=== PATIENT | female | born 1950 | race Caucasian/White ===

== ENCOUNTER → 2018-04-12 | Outpatient (CLI) | payer MEDICARE | END | disposition home or self-care (01) | LOC: CVU 07:43 | PROVIDERS: ATTEND Family Medicine | DX: M79.662 Pain in left lower leg (principal); E78.00 Pure hypercholesterolemia, unspecified; I25.2 Old myocardial infarction | CPT/HCPCS: 93922 ==

== ENCOUNTER → 2019-01-02 | Outpatient (CLI) | payer MEDICARE | END | disposition home or self-care (01) | LOC: CFH 12:14 | PROVIDERS: ATTEND Internal Medicine Cardiovascular Disease | DX: I25.10 Atherosclerotic heart disease of native coronary artery without angina pectoris (principal) | CPT/HCPCS: 78452; 93017; A9502 ==

== ENCOUNTER 2019-06-25 09:41 | Outpatient (CLI) | payer MEDICARE | END 2019-06-25 23:59 | disposition home or self-care (01) | LOC: CFH 09:41 | PROVIDERS: ATTEND Internal Medicine Cardiovascular Disease | DX: I08.3 Combined rheumatic disorders of mitral, aortic and tricuspid valves (principal); I10 Essential (primary) hypertension; I25.2 Old myocardial infarction; E78.5 Hyperlipidemia, unspecified | CPT/HCPCS: 93306 ==

== ENCOUNTER → 2019-09-20 | Outpatient (CLI) | payer MEDICARE ==
[~2019-09-20] MED LIST: ASPI-515 PO; ATOR-2 PO; ATOR20TA37 PO; CHOL200052 PO; ESTR-17 TD; IBUP-1902 PO; LEVO50TA5 PO; LOSA25TA25 PO; METHYFOLATE; METO25TA35 PO; METO25TA91 PO; OMEG-14 PO; TRINTELLIX PO
== END | disposition home or self-care (01) ==
LOC: CFH 08:09
PROVIDERS: ATTEND Nurse Practitioner Family
DX: R07.9 Chest pain, unspecified (principal); I25.10 Atherosclerotic heart disease of native coronary artery without angina pectoris; I21.9 Acute myocardial infarction, unspecified; I25.2 Old myocardial infarction
CPT/HCPCS: 78452; 93017; A9502

== ENCOUNTER 2021-07-03 06:54 | Outpatient (CLI) | payer MEDICARE ==
[~2021-07-03 06:54] MED LIST changes: -ASPI-515 PO; +ASPI-963 PO
== END 2021-07-03 23:59 | disposition home or self-care (01) ==
LOC: CFH 06:54
PROVIDERS: ATTEND Internal Medicine Cardiovascular Disease
DX: I08.3 Combined rheumatic disorders of mitral, aortic and tricuspid valves (principal); I11.9 Hypertensive heart disease without heart failure; I25.10 Atherosclerotic heart disease of native coronary artery without angina pectoris; I25.2 Old myocardial infarction; Z95.5 Presence of coronary angioplasty implant and graft
CPT/HCPCS: 78452; 93017; 93306; 93356; A9502